=== PATIENT | male | born 1960 | race Hispanic/Latino ===

== ENCOUNTER 2020-01-08 01:43 | Emergency (ER) | payer BC ==
[2020-01-08 02:12] LABS: #Basophils 0.1 thou/uL (0.0-0.2); #Eosinphils 0.3 thou/uL (0.0-0.7); #Lymphocytes 3.3 thou/uL (1.20-3.40); #Monocytes 0.8 thou/uL (0.11-0.59); #Neutrophils 5.5 thou/uL (1.40-6.50); %Basophils 0.5 % (0.0-1.0); %Eosinophils 3.3 % (0.0-10.0); %Lymphocytes 33.3 % (21.0-51.0); %Monocytes 7.9 % (0.0-10.0); Mean Corpuscular HGB CONC 34.3 g/dL (32.0-36.0); Mean Corpuscular Hemoglobin 31.8 pg (27.0-31.0); Mean Corpuscular Volume 92.7 fL (78.0-98.0); Mean Platelet Volume 8.4 fL (7.4-10.4); Platelet Count 246 thou/uL (130-400); RBC Distribution Width 12.3 % (11.5-14.5); Red Blood Cell (RBC) Count 4.42 mill/uL (4.70-6.10)
[2020-01-08 02:16] LABS: Bilirubin Negative (Negative); Blood, Urine 2+ (Negative); Clarity Turbid (Clear); Glucose, Urine (Dipstick) Normal (Negative); Ketone, Urine Negative (Negative); Leukocyte Negative Leu/uL (Negative); Nitrite Negative (Negative); Protein, Urine (Dipstick) Negative (Neg-Trace); RBC/HPF 21-50 HPF (0-3); Squamous Epithelial None Seen HPF (0-3); Urobilinogen Normal mg/dL (Less than 2)
[2020-01-08 02:19] LABS: Bacteria/HPF 1+ HPF (None Seen)
[2020-01-08 02:31] LABS: ALT (SGPT) 28 U/L (8-55); AST (SGOT) 16 U/L (5-34); Albumin 4.5 g/dL (3.5-5.0); Alkaline Phosphatase 84 U/L (40-110); Anion Gap 12 mmol/L (10-20); BUN (Urea Nitrogen) 24 mg/dL (8.4-25.7); Bilirubin, Total 0.3 mg/dL (0.2-1.2); Calc. Creatinine Clearance 0 mL/min (70-130); Carbon Dioxide 29 mmol/L (22-29); Chloride 107 mmol/L (98-107); Estimated GFR-MDRD 61; Globulin 2.7 g/dL (2.4-3.5); Glucose 109 mg/dL (70-105); Potassium 3.9 mmol/L (3.5-5.1); Protein, Total 7.2 g/dL (6.0-8.3); Sodium 144 mmol/L (136-145)
[2020-01-08] MEDS ORDERED: Ondansetron PF 4 MG/2 ML Vial ONE (03:07)
[2020-01-08] MEDS ORDERED: Ketorolac Tromethamine 30 MG/ML VIAL ONE (03:07)
--- NOTE | 2020-01-08 07:49 | CT ---
PRELIMINARY REPORT/[facility]/EMERGENCY AFTER HOURS PROCEDURE EXAM: CT Abdomen and Pelvis with Intravenous Contrast CLINICAL HISTORY: PAIN IN LOWER RIGHT ABD AWOKE PT FROM SLEEP AT APPROX 0000. DENIES FEVER/CHILLS, BODY ACHES, N/V/D. TECHNIQUE: Axial computed tomography images of the abdomen and pelvis with intravenous contrast. CONTRAST: With; ISOVUE 370,100mL COMPARISON: None provided. FINDINGS: LUNG BASES: No basilar airspace consolidation or pleural effusion. LIVER: Nonspecific 10 mm hypodensity seen within the right hepatic lobe near the gallbladder fossa. No other focal hepatic abnormalities are identified. GALLBLADDER AND BILE DUCTS: Unremarkable. No calcified stone. No ductal dilation. PANCREAS: Unremarkable. SPLEEN: Unremarkable. ADRENAL GLANDS: Unremarkable. KIDNEYS, URETERS, AND BLADDER: There is a 3 mm stone in the distal right ureter. There is mild upstream urinary tract dilatation. Th ere is also mild edematous changes of the kidney. Mild perinephric and periureteral inflammatory changes are seen on the right. No solid or cystic renal masses. No stones identified within the left kidney, ureter or bladder. STOMACH AND BOWEL: Colonic diverticula are present without acute inflammation. No evidence of colitis. No small bowel wa ll thickening or obstruction. Imaged portions of the distal esophagus and stomach are unremarkable. APPENDIX: No CT evidence for appendicitis. PERITONEUM: No free fluid. No free air. LYMPH NODES: No lymphadenopathy. REPRODUCTIVE: Unremarkable as visualized. VASCULATURE: No aortic aneurysm. BONES: No acute osseous abnormalities. Degenerative changes are scattered throughout the imaged skeleton. 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 ABDOMINAL WALL AND SOFT TISSUES: Unremarkable. IMPRESSION: 3 mm right distal ureterolith with mild upstream urinary tract dilatation and periureteral and christoph-n ephric inflammation. There is also mild edematous changes of the right kidney. Diverticulosis without acute inflammation. Additional findings as above. ELECTRONICALLY SIGNED BY: Vicente Coley DO Jan 08, 2020 2:46:17 AM CDT This report is intended for review by the ordering physician only, in accordance of law. If you recei ve this report in error, please call [facility] at [phone]. FINAL REPORT CT Abdomen Pelvis W Con History: Lower abdominal pain Comparison: None. Findings/impression: Concordant with the preliminary report. Transcribed Date/Time: 01/08/2020 8:33 AM
[2020-01-08] MEDS ORDERED: Iopamidol-370 76% 500 ML 1 ML ONE (11:49)
== END 2020-01-08 04:02 | disposition home or self-care (01) ==
LOC: ERS 01:43
DX: N20.2 Calculus of kidney with calculus of ureter (principal); N39.0 Urinary tract infection, site not specified; F17.210 Nicotine dependence, cigarettes, uncomplicated
CPT/HCPCS: 36415; 74177; 80053; 81003; 81015; 85025; 96374; 96375; J1885; J2405

== ENCOUNTER 2021-08-09 09:56 | Outpatient (CLI) | payer BC | END 2021-08-09 09:57 | disposition home or self-care (01) | LOC: RAD 09:56 | PROVIDERS: ATTEND Preventive Medicine Preventive Medicine/Occupational Environmental Medicine | DX: M25.561 Pain in right knee (principal); G89.29 Other chronic pain ==